=== PATIENT | male | born 1975 | race Caucasian/White ===

== ENCOUNTER 2023-08-08 10:37 | Emergency (ER) | payer BC, SELFPAY ==
[2023-08-08 10:38] VITALS: BP 123/89
--- NOTE | 2023-08-08 10:55 | ED.GENMED ---
History of Present Illness
<Joie Clemens PA-C - Last Filed: 08/08/23 14:24>
General
Chief Complaint: Oral/Mouth Problem
Source: patient
Exam Limitations: none
Time Seen by Provider: 08/08/23 10:54
Nursing documentation reviewed up to this point in time: agreed with
Travel History
Have you had any contact with someone who has COVID-19?: No
Do you have any symptoms of coronavirus? Fever > 100 degrees, chills, cough, shortness of breath, sore throat, loss of taste or smell, muscle aches, or headache?: No
History of Present Illness
History of Present Illness:
47-year-old male with a past medical history of seasonal affective disorder presents to the emergency department today with left-sided facial swelling and pain. Patient states that he had oral surgery with Dr. Mendoza to have multiple dental
implants placed on the left side of his lower jaw in order to eventually have crowns placed over top. Patient states that since then, he has been having pain every day. Patient states that he disease Advil and oxycodone for his pain. Patient
states that he last used Advil this morning and used oxycodone around 1 AM this morning. Patient states the pain has been getting so severe that keeps him up at night and oxycodone does not touch the pain. Patient states that he has had
intermittent swelling, however last night swelling became very pronounced and persisted. Patient's pain extends to the floor of his mouth, down the front of his neck, and extends up the left side of the face. Patient denies fevers or chills,
nausea vomiting. Patient was started on a Z-Juan after the surgery by his oral surgeon, patient finished the course and is no longer taking that. Patient denies trouble breathing, trouble swallowing. Of note, he is allergic to amoxicillin and
clindamycin.
Past History
<Joie Clemens PA-C - Last Filed: 08/08/23 14:24>
Past History
ED Past Medical History: None
ED Past Surgical History: Other
Social History
Tobacco: Non-smoker
Personal:
Living: with family
Employment: Employed
Review of Systems
<KIMBERLEY Davalos Last Filed: 08/08/23 14:24>
Review of Systems
All Other Systems: ROS reviewed and negative except as documented in HPI and ROS
Respiratory: Reports no symptoms
Cardiac: Reports no symptoms
ABD/GI: Reports no symptoms
: Reports no symptoms
Musculoskeletal: Reports no symptoms
Neurological: Reports no symptoms
Hematologic/Lymphatic: Reports no symptoms
Psychiatric: Reports no symptoms
Phy Exam
<KIMBERLEY Davalos Last Filed: 08/08/23 14:24>
Physical Exam
Physical Exam:
Vitals: Patient is tachycardic, otherwise vital signs are stable.
General: Patient appears uncomfortable secondary to pain, however nontoxic-appearing
Skin: There is unilateral left sided facial swelling, no erythema, no fluctuance. Non-diaphoretic.
Head: Normocephalic, atraumatic
Mouth: Extreme tenderness to palpation of the floor of the left oral floor. Mild erythema overlying incision site, incision site intact, no drainage, no purulence, sutures in place.
Neck: Tenderness to palpation of the left neck, no palpable lymphadenopathy.
Cardiac: Regular rate
Pulm: Normal respiratory effort.
Neuro: AAOx3. CN II-XII intact.
Course
<KIMBERLEY Davalos Last Filed: 08/08/23 14:24>
Orders/Labs/Results
Orders:
Orders
08/08/23 11:07
Morphine Sulfate 2 mg IV NOW STA
08/08/23 11:08
0.9% Sodium Chloride 1000 ml [Nss] 1,000 ml IV BOLUS
08/08/23 11:25
CT Facial Bones W/o Iv Contras Urgent
Comment:
Reason For Exam: left sided facial pain and swelling
08/08/23 11:26
Dexamethasone Sod Phosphate [Decadron] 10 mg IV NOW STA
Ketorolac [Toradol] 15 mg IV NOW STA
08/08/23 11:59
Complete Blood Count/With Diff Urgent
Comprehensive Metabolic Panel Urgent
08/08/23 13:18
Cefdinir [Omnicef] 300 mg PO NOW STA
08/08/23 13:49
MetroNIDAZOLE [Flagyl] 250 mg PO NOW STA
Abnormal Lab Results
08/08/23
11:59
RBC 3.98 L 10^6/uL
(4.70-6.10)
Hgb 12.9 L g/dL
(13.0-18.0)
Hct 36.3 L %
(39.0-52.0)
MCH 32.4 H pg
(27.0-31.0)
Absolute Monos (auto) 0.8 H 10^3/uL
(0.1-0.6)
Lymphocytes % 18.8 L %
(20.5-51.1)
Monocytes % 10.1 H %
(1.7-9.3)
Sodium 133 L mmol/L
(135-145)
Creatinine 0.6 L mg/dL
(0.7-1.3)
Glucose 133 H mg/dl
(70-99)
08/08/23 11:59
08/08/23 11:59
Vital Signs
Initial and Last Documented VS:
Initial Vital Signs
Temp Pulse Resp BP Pulse Ox
98.5 F 102 16 123/89 100
08/08/23 10:38 08/08/23 10:38 08/08/23 10:38 08/08/23 10:38 08/08/23 10:38
Last Documented Vital Signs
Temp Pulse Resp BP Pulse Ox
98.5 F 101 18 118/89 95
08/08/23 10:38 08/08/23 14:11 08/08/23 14:11 08/08/23 14:00 08/08/23 14:00
<Rivas Villa MD - Last Filed: 08/08/23 13:56>
Orders/Labs/Results
Orders:
Orders
08/08/23 11:07
Morphine Sulfate 2 mg IV NOW STA
08/08/23 11:08
0.9% Sodium Chloride 1000 ml [Nss] 1,000 ml IV BOLUS
08/08/23 11:25
CT Facial Bones W/o Iv Contras Urgent
Comment:
Reason For Exam: left sided facial pain and swelling
08/08/23 11:26
Dexamethasone Sod Phosphate [Decadron] 10 mg IV NOW STA
Ketorolac [Toradol] 15 mg IV NOW STA
08/08/23 11:59
Complete Blood Count/With Diff Urgent
Comprehensive Metabolic Panel Urgent
08/08/23 13:18
Cefdinir [Omnicef] 300 mg PO NOW STA
08/08/23 13:49
MetroNIDAZOLE [Flagyl] 250 mg PO NOW STA
Abnormal Lab Results
08/08/23
11:59
RBC 3.98 L 10^6/uL
(4.70-6.10)
Hgb 12.9 L g/dL
(13.0-18.0)
Hct 36.3 L %
(39.0-52.0)
MCH 32.4 H pg
(27.0-31.0)
Absolute Monos (auto) 0.8 H 10^3/uL
(0.1-0.6)
Lymphocytes % 18.8 L %
(20.5-51.1)
Monocytes % 10.1 H %
(1.7-9.3)
Sodium 133 L mmol/L
(135-145)
Creatinine 0.6 L mg/dL
(0.7-1.3)
Glucose 133 H mg/dl
(70-99)
08/08/23 11:59
08/08/23 11:59
Vital Signs
Initial and Last Documented VS:
Initial Vital Signs
Temp Pulse Resp BP Pulse Ox
98.5 F 102 16 123/89 100
08/08/23 10:38 08/08/23 10:38 08/08/23 10:38 08/08/23 10:38 08/08/23 10:38
Last Documented Vital Signs
Temp Pulse Resp BP Pulse Ox
98.5 F 101 18 118/89 95
08/08/23 10:38 08/08/23 14:11 08/08/23 14:11 08/08/23 14:00 08/08/23 14:00
<Joie Clemens PA-C - Last Filed: 08/08/23 14:24>
MDM/Problems Addressed
Differential Diagnosis Includes:
ddx include postsurgical inflammatory changes, dental infection, Joe angina, parotitis
MDM/Problems Addressed:
left sided facial pain and swelling
Chronic conditions affecting care:
seasonal affective disorder
Acute Exacerbation and/or Progression of Chronic Illness:
m/a
<Joie Clemens PA-C - Last Filed: 08/08/23 14:24>
*Pulse Oximetry
Patient hypoxic: no
*Critical Care Note
Total Time (30-74mins, 75-104mins- exclusive of procedures): Not Applicable
Data Reviewed
Review of Other/Old Records Reveals: Records (reviewed ER physician documentation from 04/28/23, 05/31/20)
Source: patient and records
<Joie Clemens PA-C - Last Filed: 08/08/23 14:24>
Patient Management
Escalation/DeEscalation of care consider admission/obs:
47-year-old male with a past medical history of seasonal affective disorder presents to the emergency department today with left-sided facial swelling and pain. Patient had a oral surgery a week ago to have dental implants placed. On exam, patient
has exquisite tenderness on the floor of the left mouth with associated neck pain. CT scan reveals superficial soft tissue swelling adjacent to the left side of the mandible with possible phlegmon, cannot exclude small abscess. I spoke to patient's
oral surgeon on the phone and relayed CT findings, recommend discharging patient on out patient antibiotics, and he would be okay with any regimen. Considering patient's allergies and infection, spoke to infectious disease doctor [facility] department floorperson Dr. Lozano
who recommends Cefdinir and Flagyl. Considering patient's amoxicillin allergy, we will monitor him for an hour.
After monitoring, patient has no symptoms, no SOB, no rash. I advised patient to continue to monitor his symptoms as he takes the cefdinir and to return if he has any other symptoms. Patient will follow up with his oral surgeon. Patient medically
stable for discharge.
<Joie Clemens PA-C - Last Filed: 08/08/23 14:24>
Update Note
Update Note:
I spoke to patient's oral surgeon on the phone and relayed CT findings, recommend discharging patient on out patient antibiotics, and he would be okay with any regimen. Considering patient's allergies and infection, spoke to infectious disease
doctor slot machine department floorperson Dr. Lozano who recommends Cefdinir and Flagyl. Considering patient's amoxicillin allergy, we will monitor him for an hour.
ED Attending Note
<Joie Clemens PA-C - Last Filed: 08/08/23 14:24>
-
Portions of this chart may have been created with voice recognition software.� Occasional wrong word or��sound alike� substitutions may have occurred due to the inherent limitations of voice recognition software.
<Rivas Villa MD - Last Filed: 08/08/23 13:56>
ED Attending Note
Patient seen and examined by attending physician: Yes
ED Attending Note:
Patient status post dental implant 1 week ago, presents to emergency department secondary to worsening pain since the procedure along with facial swelling and pain over the past 24 hours. Denies fever or chills. Denies difficulty breathing.
Denies difficulty with swallowing. Denies nausea or vomiting. Denies dizziness.
Physical Exam
General: no apparent distress, not acutely ill. afebrile
Head: nc/at. eomi
Neck: supple. no meningeal signs. left lower tooth surgical site noted with mild tenderness without drainage. facial/left side of neck swelling noted with tenderness.
Abdomen: normal bowel sounds. not tender.
Neuro: alert and oriented. no focal neurological deficits
Skin: no rash
Psychiatric: well kept. interactive and cooperative
Extremities: no edema. no calf tenderness.
CT report reviewed and discussed with patient's oral surgeon () - agrees with starting patient on abx along with urgent outpatient f/u. In light of patient's abx allergy hx, discussed with (ID) who recommends starting patient
on Omnicef/Flagly. Prior to discharge, will administer abx and make sure there's no acute reaction.
Discharge Plan
Departure
Patient Disposition: Home (Routine Discharge)
Date of Disposition: 08/08/23
Time of Disposition: 14:14
Patient with high blood pressure during this ER visit?: No
Condition: Good
Discharge Problem:
Dental implant pain, Dental infection
Instructions: Dental Pain (DC), BLOOD PRESSURE
Prescriptions:
New
metronidazole 500 mg tablet
500 mg PO Q8H 7 Days Qty: 21 0RF
cefdinir 300 mg capsule
300 mg PO BID 7 Days Qty: 14 0RF
ketorolac 10 mg tablet
10 mg PO Q8H PRN (Reason: Pain) 4 Days Qty: 14 0RF
No Action
bupropion HCl [Wellbutrin SR] 150 mg Tablet Sustained-Release 12 Hr
150 mg PO DAILY
tramadol 50 mg Tablet
50 mg PO Q6H PRN (Reason: pain)
methylprednisolone [Medrol (Juan)] 4 mg Tablets,Dose Pack
4 mg PO .TAPER
metronidazole [Metrogel] 1 % Gel
1 applic TOPICAL DAILY
oxycodone-acetaminophen [Percocet] 5-325 mg tablet
1 tab PO Q4HPRN PRN (Reason: pain) Qty: 10 0RF
gabapentin 300 mg capsule
300 mg PO BID PRN (Reason: pain) Qty: 14 0RF
Referrals:
Jermain Cox DO [Family Provider] -
Activity Restrictions/Additional Instructions:
We have sent a medication called Cefdinir to your pharmacy. Please take one tablet twice daily for 7 days. We have also sent flagyl to your pharmacy, please take one tablet every 8 hours for 7 days.
I have also sent toradol to your pharmacy. Please take one tablet every 8 hours as needed for pain. Please do not use Advil at the same time. Please do not exceed 40 mg per day or 4 days of use.
Please call Dr. Mendoza's office today to schedule follow up appointment.
Please return to the emergency department should you experience fevers or chills, intractable vomiting, tongue swelling, lip swelling, chest pain, shortness of breath, or other concerning signs or symptoms.
Interventions
Interventions:
*Risk Screen - Suicide Last Done: 08/08/23 11:31
*General Assessment Last Done: 08/08/23 11:32
*Neglect/Abuse Screening Last Done: 08/08/23 11:31
*ED COVID-19 Vaccine History Last Done: 08/08/23 10:38
[2023-08-08] MEDS: MORPHINE SULFATE 2 MG IV (11:23)
[2023-08-08] MEDS: NSS 1000 IV (11:25)
[2023-08-08] MEDS: DECADRON 10 MG IV (11:57)
[2023-08-08] MEDS: TORADOL 15 MG IV (11:57)
[2023-08-08 12:07] LABS: % Basophils 0.7 % (0-2); % Eosinophils 0.8 % (0-6); % Immature Granulocytes 0.4 % (0-0.5); % Lymphocytes 18.8 % (20.5-51.1); % Monocytes 10.1 % (1.7-9.3); % Neutrophils 69.2 % (42.2-75.2); Absolute Basophils 0.1 10^3/uL (0-0.2); Absolute Eosinophils 0.1 10^3/uL (0-0.7); Absolute Lymphocytes 1.4 10^3/uL (1.2-3.4); Absolute Monocytes 0.8 10^3/uL (0.1-0.6); Absolute Neutrophils 5.1 10^3/uL (1.4-6.5); Hematocrit 36.3 % (39.0-52.0); Hemoglobin 12.9 g/dL (13.0-18.0); Mean Corp Hgb Conc. 35.5 g/dL (33.0-37.0); Mean Corpuscular Hgb 32.4 pg (27.0-31.0); Mean Corpuscular Volume 91.2 fL (80.0-94.0); Mean Platelet Volume 9.7 fL (7.4-10.4); Nucleated Red Blood Cells % 0 % (-); Platelet Count 155 10^3/uL (130-400); Red Blood Cell Count 3.98 10^6/uL (4.70-6.10); Red Cell Dist. Width 11.7 % (11.5-14.5); White Blood Cell Count 7.4 10^3/uL (4.8-10.8)
[2023-08-08 12:20] LABS: ALT (SGPT) 28 U/L (0-50); AST (SGOT) 23 U/L (17-59); Albumin 3.9 g/dl (3.5-5.0); Alkaline Phosphatase 82 U/L (38-126); Blood Urea Nitrogen 12 mg/dl (9-20); Calcium 8.6 mg/dl (8.4-10.2); Carbon Dioxide 27 mmol/L (22-30); Chloride 105 mmol/L (98-107); Glucose 133 mg/dl (70-99); Sodium 133 mmol/L (135-145); Total Bilirubin 0.8 mg/dl (0.2-1.3); Total Protein 6.3 g/dl (6.3-8.2); eGFR > 60.00
[2023-08-08] MEDS: OMNICEF 300 MG PO (13:44)
[2023-08-08 14:00] VITALS: BP 118/89
[2023-08-08] MEDS: FLAGYL 250 MG PO (14:02)
== END 2023-08-08 14:25 | disposition home or self-care (01) ==
LOC: EMR 10:37
PROVIDERS: Physician Assistant; EMERGENCY PHYSICIAN Emergency Medicine; FAMILY PHYSICIAN Family Medicine
DX: K04.7 Periapical abscess without sinus (principal); R22.0 Localized swelling, mass and lump, head; F39 Unspecified mood [affective] disorder
CPT/HCPCS: 99284; 96374; 96375; 96361; 70486; 80053; 85025

== ENCOUNTER → 2024-03-28 08:58 | Outpatient (REF) | payer BC, SELFPAY ==
[2024-03-28 10:02] LABS: Urine Albumin Trace (Neg - Trace); Urine Bilirubin Negative (Negative); Urine Character Clear (Clear); Urine Color Yellow; Urine Glucose Negative (Negative); Urine Ketone Negative (Negative); Urine Leukocyte Negative (Negative); Urine Nitrite Negative (Negative); Urine Occult Blood 1+ (Negative); Urine Specific Gravity 1.025 (<1.030); Urine Urobilinogen Negative (Neg - 1+)
[2024-03-28 10:04] LABS: % Basophils 0.7 % (0-2); % Immature Granulocytes 0.3 % (0-0.5); % Monocytes 6.3 % (1.7-9.3); % Neutrophils 69.7 % (42.2-75.2); Absolute Eosinophils 0.1 10^3/uL (0-0.7); Absolute Lymphocytes 1.3 10^3/uL (1.2-3.4); Absolute Monocytes 0.4 10^3/uL (0.1-0.6); Absolute Neutrophils 4.1 10^3/uL (1.4-6.5); Hematocrit 47.1 % (39.0-52.0); Hemoglobin 16.6 g/dL (13.0-18.0); Mean Corp Hgb Conc. 35.2 g/dL (33.0-37.0); Mean Corpuscular Volume 90.8 fL (80.0-94.0); Mean Platelet Volume 10.6 fL (7.4-10.4); Nucleated Red Blood Cells % 0 % (-); Platelet Count 175 10^3/uL (130-400); Red Blood Cell Count 5.19 10^6/uL (4.70-6.10); White Blood Cell Count 5.9 10^3/uL (4.8-10.8)
[2024-03-28 10:48] LABS: ALT (SGPT) 55 U/L (0-50); AST (SGOT) 37 U/L (17-59); Albumin 4.7 g/dl (3.5-5.0); Alkaline Phosphatase 83 U/L (38-126); Blood Urea Nitrogen 13 mg/dl (9-20); Calcium 9.5 mg/dl (8.4-10.2); Carbon Dioxide 26 mmol/L (22-30); Chloride 105 mmol/L (98-107); Glucose 168 mg/dl (70-99); HDL Cholesterol 37 mg/dl; Iron 117 ug/dl (49-181); LDL Cholesterol, Calculated 100 mg/dl; Sodium 144 mmol/L (135-145); Total Bilirubin 0.6 mg/dl (0.2-1.3); Total Cholesterol 198 mg/dl (50-199); Total Protein 7.3 g/dl (6.3-8.2); Triglyceride 306 mg/dl (10-149); Very Low Density Lipoprotein 61 mg/dl (0-30); eGFR > 60.00
[2024-03-28 10:49] LABS: D-Dimer 0.33 ug/mlFEU (0.00-0.50)
[2024-03-28 10:52] LABS: C-Reactive Protein < 5.00 mg/L (0.0-10.00)
[2024-03-28 10:56] LABS: Erythrocyte Sed Rate 7 mm/hour (0-20)
[2024-03-28 11:24] LABS: PSA, Total - Screen 0.34 ng/ml (0.0-4.0); TSH Reflex To Free T4 2.85 uIU/ml (0.47-4.68)
[2024-03-28 11:27] LABS: Ferritin 76.6 ng/ml (17.9-464.0)
[2024-03-28 11:59] LABS: Folate 18.6 ng/ml (2.76-20); Vitamin B12 393 pg/ml (239-931)
[2024-03-28 12:57] LABS: Urine Amorphous Seen; Urine Mucus Many
[2024-03-28 12:58] LABS: Urine White Cell 0-2 /HPF (0-5)
[2024-03-28 12:59] LABS: Urine Granular Cast 0-2 /LPF (0)
[2024-03-28 14:09] LABS: Glycohemoglobin (HgbA1c) 6.1 % (4.0-5.6)
[2024-03-29 10:32] LABS: Rheumatoid Agglutinin Less Than 10 IU (<10 IU)
[2024-03-29 11:43] LABS: Lyme Antibody Screen, EIA Negative (Negative)
[2024-03-30 00:26] LABS: CCP Antibody IgG/IgA 5 Units (0-19)
[2024-03-30 00:35] LABS: ANA, IgG Reflex to HEp-2 None Detected (None Detected)
== END ==
LOC: REG 08:58
PROVIDERS: ATTENDING PHYSICIAN Family Medicine
DX: M25.50 Pain in unspecified joint (principal); M79.18 Myalgia, other site; R25.3 Fasciculation
CPT/HCPCS: 36415; 80053; 80061; 81003; 81015; 82607; 82728; 82746; 83036; 83540; 83735; 84443; 85025; 85379; 85652; 86038; 86140; 86200; 86430; 86618; G0103

== ENCOUNTER → 2024-07-12 12:23 | Outpatient (REF) | payer BC, SELFPAY | LOC: RAD 12:23 | PROVIDERS: ATTENDING PHYSICIAN Family Medicine | DX: S67.198A Crushing injury of other finger, initial encounter (principal) | CPT/HCPCS: 73140 ==

== ENCOUNTER → 2025-04-18 10:07 | Outpatient (REF) | payer BC, SELFPAY ==
[2025-04-18 11:05] LABS: Hematocrit 45.9 % (39.0-52.0); Hemoglobin 15.7 g/dL (13.0-18.0); Mean Corp Hgb Conc. 34.2 g/dL (33.0-37.0); Mean Corpuscular Volume 92.7 fL (80.0-94.0); Nucleated Red Blood Cells % 0 % (-); Platelet Count 172 10^3/uL (130-400); Red Cell Dist. Width 11.7 % (11.5-14.5)
[2025-04-18 11:22] LABS: Blood Urea Nitrogen 14 mg/dl (9-20); Calcium 9.1 mg/dl (8.4-10.2); Carbon Dioxide 30 mmol/L (22-30); Chloride 101 mmol/L (98-107); Glucose 210 mg/dl (70-99); HDL Cholesterol 34 mg/dl; LDL Cholesterol, Calculated 90 mg/dl; Potassium 4.4 mmol/L (3.5-5.1); Sodium 137 mmol/L (135-145); Very Low Density Lipoprotein 70 mg/dl (0-30); eGFR > 60.00
[2025-04-18 11:33] LABS: Glycohemoglobin (HgbA1c) 7.1 % (4.0-5.9)
== END ==
LOC: REG 10:07
PROVIDERS: ATTENDING PHYSICIAN Physician Assistant; FAMILY PHYSICIAN Family Medicine
DX: R73.03 Prediabetes (principal); E78.2 Mixed hyperlipidemia
CPT/HCPCS: 36415; 80048; 80061; 83036; 85025